=== PATIENT | male | born 1960 | race Caucasian/White ===

== ENCOUNTER 2018-04-05 03:47 | Emergency (ER) | payer SELFPAY ==
[~2018-04-05] VITALS: Ht 172.7 cm; Wt 89.5 kg
[2018-04-05 07:36] VITALS: BP 190/90
== END 2018-04-05 07:37 | disposition home or self-care (01) ==
LOC: EME 03:47
DX: Z76.0 Encounter for issue of repeat prescription (principal)
CPT/HCPCS: 99281; 99283